=== PATIENT | male | born 1935 | race Caucasian/White ===

== ENCOUNTER 2017-05-15 19:16 | Emergency (ER) | payer MEDICARE, BC ==
[2017-05-15] MEDS ORDERED: hydrALAZINE 10 MG Tab PO ONE (19:17)
[2017-05-15] MEDS ORDERED: Metoprolol Tartrate 50 MG Tab PO ONE ×2 (19:17→21:55)
[2017-05-15] MEDS ORDERED: Labetalol 20 MG/4 ML Syringe ONE (19:41)
--- NOTE | 2017-05-15 19:47 | EDM.PDOC ---
ED HPI GENERAL MEDICAL PROBLEM - General Chief Complaint: Cardiovascular Problem Stated Complaint: HIGH BPOOD PRESSURE Time Seen by Provider: 05/15/17 19:35 Source of Information: Reports: Patient History Limitations: Reports: No Limitations - History of Present Illness INITIAL COMMENTS - FREE TEXT/NARRATIVE: Chito comes to [facility] ED by POV with intermittent precordial chest pressure over the past 20 hrs, associated with elevated BPs present for several weeks. Pain is nonradiating, associated with some malaise but no lopez SOB or palpitations. There is no nausea, headache, dizziness, sweats or known hx of CAD. He has been managing elevated BP for since the first week of April, current BPs 224/82 inspite of meds. He has a PMH of Type II DM and hypothyroidism on meds. Mid-Sternal Chest Pain Score (Numeric/FACES): 4 - Related Data Allergies Allergy/AdvReac Type Severity Reaction Status Date / Time No Known Allergies Allergy Verified 05/15/17 19:54 Home Meds: Home Meds Aspirin [Adult Low Dose Aspirin EC] 81 mg PO DAILY 02/04/13 [History] Omeprazole 20 mg DAILY 08/31/14 [History] Terazosin [Hytrin] 2 mg BEDTIME 08/31/14 [History] metFORMIN [Glucophage] 250 mg PO PCDIN 08/31/14 [History] metFORMIN [Glucophage] 500 mg DAILY 08/31/14 [History] Levothyroxine 75 mcg PO ASDIRECTED 05/15/17 [History] Losartan [Cozaar] 75 mg PO DAILY 05/15/17 [History] Zolpidem Tartrate [Ambien] 5 mg PO BEDTIME 05/15/17 [History] Past Medical History - Past Health History Medical/Surgical History: Denies Medical/Surgical History Other Cardiovascular History: was on BP meds before, but took off because BP became too low. Endocrine/Metabolic History: Reports: Diabetes, Type II, Hypothyroidism Social & Family History - Tobacco Use Smoking Status *Q: Never Smoker - Alcohol Use Days Per Week of Alcohol Use: 1 Number of Drinks Per Day: 1 Total Drinks Per Week: 1 - Recreational Drug Use Recreational Drug Use: No ED ROS GENERAL - Review of Systems Review Of Systems: See Below Constitutional: Reports: Malaise, Decreased Appetite HEENT: Reports: No Symptoms Respiratory: Reports: No Symptoms Cardiovascular: Reports: Chest Pain, Blood Pressure Problem Endocrine: Reports: No Symptoms GI/Abdominal: Reports: No Symptoms : Reports: No Symptoms Musculoskeletal: Reports: No Symptoms Skin: Reports: No Symptoms Neurological: Reports: No Symptoms Psychiatric: Reports: Anxiety Hematologic/Lymphatic: Reports: No Symptoms Immunologic: Reports: No Symptoms ED EXAM, GENERAL - Physical Exam Exam: See Below Exam Limited By: No Limitations General Appearance: Alert, WD/WN, No Apparent Distress, Anxious Eye Exam: Bilateral Eye: EOMI, Normal Inspection, PERRL Ears: Normal External Exam Nose: Normal Inspection Throat/Mouth: Normal Inspection, Normal Oropharynx Head: Normocephalic Neck: Normal Inspection, Supple, Non-Tender, Full Range of Motion Respiratory/Chest: Lungs Clear, Normal Breath Sounds, Chest Non-Tender Cardiovascular: Normal Peripheral Pulses, No Edema, No Gallop, No Murmur, Tachycardia GI/Abdominal: Normal Bowel Sounds, Soft, Non-Tender, No Organomegaly, No Distention, No Mass (Male) Exam: No Hernia Back Exam: Normal Inspection Extremities: Normal Inspection Neurological: Alert, Oriented, CN II-XII Intact, Normal Gait, No Motor/Sensory Deficits Psychiatric: Normal Affect, Anxious Skin Exam: Warm, Dry, Intact Lymphatic: No Adenopathy Course - Vital Signs Text/Narrative:: Following assessment at the [facility] ED, an IV was started in the LUE, and he was administered Labetolol 10 mg x2 doses, followed by Apresoline 10 mg IV, with corresponding reduction of BP 170/75, VR 76. He is currently asx. Screening CBC and CMP labwork was baseline, BNP 479, troponin I <0.017,ekg noted NSR. Last Recorded V/S: Last Vital Signs Temp 36.5 C 05/15/17 19:59 Pulse 72 05/15/17 19:59 Resp 20 05/15/17 19:59 BP 236/84 H 05/15/17 19:59 Pulse Ox 96 05/15/17 19:59 - Orders/Labs/Meds Orders: Active Orders 24 hr Category Date Time Status EKG Documentation Completion [RC] ASDIRECTED Care 05/15/17 19:48 Active Chest 1V Frontal [CR] Stat Exams 05/15/17 19:48 Ordered Metoprolol Tartrate [Lopressor] Med 05/15/17 21:55 Once 50 mg PO ONETIME ONE Sodium Chloride 0.9% [Normal Saline] 1,000 ml Med 05/15/17 20:00 Active IV ASDIRECTED Sodium Chloride 0.9% [Saline Flush] Med 05/15/17 19:48 Active 10 ml FLUSH ASDIRECTED PRN hydrALAZINE [Apresoline] Med 05/16/17 05:00 Ordered 10 mg PO Q6H Peripheral IV Insertion Adult [OM.PC] Routine Oth 05/15/17 19:48 Ordered EKG 12 Lead [EK] Routine Ther 05/15/17 19:48 Ordered Medication Orders Sodium Chloride (Normal Saline) 1,000 mls @ 150 mls/hr IV ASDIRECTED KAYKAY Last Admin: 05/15/17 20:20 Dose: 150 mls/hr Sodium Chloride (Saline Flush) 10 ml FLUSH ASDIRECTED PRN PRN Reason: Keep Vein Open Last Admin: 05/15/17 20:07 Dose: 10 ml Labs: Laboratory Tests 05/15/17 05/15/17 05/15/17 Range/Units 19:55 19:55 19:55 WBC 7.0 (4.5-12.0) X10-3/uL RBC 5.05 (4.30-5.75) x10(6)uL Hgb 15.8 H (11.5-15.5) g/dL Hct 48.2 (30.0-51.3) % MCV 95.6 (80-96) fL MCH 31.2 (27.7-33.6) pg MCHC 32.7 (32.2-35.4) g/dL RDW 12.2 (11.5-15.5) % Plt Count 116 L (125-369) X10(3)uL MPV 9.3 (7.4-10.4) fL Neut % (Auto) 77.2 (46-82) % Lymph % (Auto) 15.2 (13-37) % Hoke % (Auto) 5.7 (4-12) % Eos % (Auto) 1 (1.0-5.0) % Baso % (Auto) 1 (0-2) % Neut # (Auto) 5.3 (1.6-8.3) # Lymph # (Auto) 1.1 (0.6-5.0) # Hoke # (Auto) 0.4 (0.0-1.3) # Eos # (Auto) 0.1 (0.0-0.8) # Baso # (Auto) 0.0 (0.0-0.2) # Sodium 139 (135-145) mmol/L Potassium 4.3 (3.5-5.3) mmol/L Chloride 104 (100-110) mmol/L Carbon Dioxide 28 (21-32) mmol/L BUN 24 H (7-18) mg/dL Creatinine 1.2 (0.70-1.30) mg/dL Est Cr Clr Drug Dosing 48.16 mL/min Estimated GFR (MDRD) 58 L (>60) BUN/Creatinine Ratio 20.0 (9-20) Glucose 131 H (80-116) mg/dL Calcium 8.9 (8.6-10.2) mg/dL Total Bilirubin 0.5 (0.1-1.3) mg/dL AST 18 (5-25) IU/L ALT 23 (12-36) U/L Alkaline Phosphatase 64 (56-112) IU/L Troponin I < 0.017 L (<0.017-0.056) ng/mL NT-Pro-B Natriuret Pep 479 H (<=450) pg/mL Total Protein 7.1 (6.0-8.0) g/dL Albumin 3.4 (3.2-4.6) g/dL Globulin 3.7 g/dL Albumin/Globulin Ratio 0.9 Meds: Medications Generic Name Dose Route Start Last Admin Trade Name Freq PRN Reason Stop Dose Admin Sodium Chloride 1,000 mls @ 150 mls/hr 05/15/17 20:00 05/15/17 20:20 Normal Saline IV 150 mls/hr ASDIRECTED KAYKAY Administration Sodium Chloride 10 ml 05/15/17 19:48 05/15/17 20:07 Saline Flush FLUSH 10 ml ASDIRECTED PRN Administration Keep Vein Open Discontinued Medications Generic Name Dose Route Start Last Admin Trade Name Freq PRN Reason Stop Dose Admin Hydralazine HCl 10 mg 05/15/17 20:56 05/15/17 21:03 Apresoline IVPUSH 05/15/17 20:57 10 mg ONETIME ONE Administration Labetalol HCl Confirm 05/15/17 19:41 05/15/17 19:48 Normodyne Administered 05/15/17 19:42 20 mg Dose Administration 20 mg .ROUTE .STK-MED ONE Labetalol HCl 10 mg 05/15/17 20:21 05/15/17 20:25 Normodyne IVPUSH 05/15/17 20:22 10 mg ONETIME ONE Administration Protocol Departure - Departure Time of Disposition: 21:58 Disposition: Home, Self-Care 01 Condition: Fair Clinical Impression: HTN (hypertension) Qualifiers: Hypertension type: essential hypertension Qualified Code(s): I10 - Essential ( primary) hypertension Referrals: Zee Edwards NP [Primary Care Provider] - Forms: ED Department Discharge - Problem List & Annotations (1) HTN (hypertension) SNOMED Code(s): 79443127 Code(s): I10 - ESSENTIAL (PRIMARY) HYPERTENSION Status: Acute Current Visit: Yes Annotation/Comment:: Chito will take Apresoline 10 mg po and Metoprolol 50 mg po at 5 am tomorrow. He will follow up with PCP tomorrow. Qualifiers: Hypertension type: essential hypertension Qualified Code(s): I10 - Essential (primary) hypertension - Problem List Review Problem List Initiated/Reviewed/Updated: Yes - My Orders Last 24 Hours: My Active Orders 05/15/17 19:48 EKG Documentation Completion [RC] ASDIRECTED Chest 1V Frontal [CR] Stat Sodium Chloride 0.9% [Saline Flush] 10 ml FLUSH ASDIRECTED PRN Peripheral IV Insertion Adult [OM.PC] Routine EKG 12 Lead [EK] Routine 05/15/17 20:00 Sodium Chloride 0.9% [Normal Saline] 1,000 ml IV ASDIRECTED 05/15/17 21:55 Metoprolol Tartrate [Lopressor] 50 mg PO ONETIME ONE 05/16/17 05:00 hydrALAZINE [Apresoline] 10 mg PO Q6H - Assessment/Plan Last 24 Hours: My Active Orders 05/15/17 19:48 EKG Documentation Completion [RC] ASDIRECTED Chest 1V Frontal [CR] Stat Sodium Chloride 0.9% [Saline Flush] 10 ml FLUSH ASDIRECTED PRN Peripheral IV Insertion Adult [OM.PC] Routine EKG 12 Lead [EK] Routine 05/15/17 20:00 Sodium Chloride 0.9% [Normal Saline] 1,000 ml IV ASDIRECTED 05/15/17 21:55 Metoprolol Tartrate [Lopressor] 50 mg PO ONETIME ONE 05/16/17 05:00 hydrALAZINE [Apresoline] 10 mg PO Q6H Plan: Follow up with PCP tomorrow.
[2017-05-15] MEDS ORDERED: Sodium Chloride 0.9% 10 ML Syringe FLUSH PRN (19:48)
[2017-05-15] MEDS ORDERED: Sodium Chloride 0.9% 1,000 ML IV SCH (20:00)
[2017-05-15 20:05] VITALS: BP 236/84
[2017-05-15] MEDS ORDERED: Labetalol 20 MG/4 ML Syringe IVPUSH ONE (20:21)
[2017-05-15] MEDS ORDERED: hydrALAZINE 20 MG/ML SDV IVPUSH ONE (20:56)
[2017-05-15] MEDS ORDERED: hydrALAZINE 10 MG Tab ONE (22:05)
[2017-05-16] MEDS ORDERED: hydrALAZINE 10 MG Tab PO SCH (05:00)
== END 2017-05-15 22:14 | disposition home or self-care (01) ==
LOC: FB.ED 19:16
DX: I10 Essential (primary) hypertension (principal); E11.9 Type 2 diabetes mellitus without complications; E03.9 Hypothyroidism, unspecified; Z79.82 Long term (current) use of aspirin; Z79.899 Other long term (current) drug therapy; Z79.84 Long term (current) use of oral hypoglycemic drugs
CPT/HCPCS: 36415; 80053; 83880; 84484; 85025; 93005; 96361; 96374; 96375; 96376; 99283; A9270; J0360; J7040; J7050

== ENCOUNTER 2019-10-16 22:15 | Emergency (ER) | payer MEDICARE, BC ==
--- NOTE | 2019-10-16 23:06 | EDM.PDOC ---
ED HPI GENERAL MEDICAL PROBLEM - General Chief Complaint: General Stated Complaint: ear Time Seen by Provider: 10/16/19 22:30 Source of Information: Reports: Patient History Limitations: Reports: No Limitations - History of Present Illness INITIAL COMMENTS - FREE TEXT/NARRATIVE: Patient presented to the ED because of bleeding from the right ear. He had a Mohs procedure done at [facility] today. His friend tried to apply pressure but bleeding persisted. - Related Data Allergies Allergy/AdvReac Type Severity Reaction Status Date / Time No Known Allergies Allergy Verified 10/17/19 01:20 Home Meds: Home Meds Aspirin [Adult Low Dose Aspirin EC] 81 mg PO DAILY 02/04/13 [History] Omeprazole 20 mg PO DAILY 08/31/14 [History] Terazosin [Hytrin] 2 mg PO BEDTIME 08/31/14 [History] Levothyroxine 75 mcg PO ASDIRECTED 05/15/17 [History] Carboxymethylcellulose Sodium [Refresh Tears 0.5%] 1 drop EYEBOTH BID 10/17/19 [History] Escitalopram [Lexapro] 10 mg PO DAILY 10/17/19 [History] Gabapentin [Neurontin] 300 mg PO BID 10/17/19 [History] Insulin Detemir [Levemir Flextouch] 16 unit SUBCUT BEDTIME 10/17/19 [History] SitaGLIPtin [Januvia] 100 mg PO DAILY 10/17/19 [History] atorvaSTATin [Lipitor] 20 mg PO BEDTIME 10/17/19 [History] Past Medical History - Past Health History Medical/Surgical History: Denies Medical/Surgical History HEENT History: Reports: Impaired Vision Cardiovascular History: Reports: Hypertension Other Cardiovascular History: was on BP meds before, but took off because BP became too low. Endocrine/Metabolic History: Reports: Diabetes, Type II, Hypothyroidism - Infectious Disease History Infectious Disease History: Reports: Chicken Pox, Measles, Mumps, Shingles Social & Family History - Family History Family Medical History: Noncontributory - Caffeine Use Caffeine Use: Reports: Coffee ED ROS GENERAL - Review of Systems Review Of Systems: See Below Constitutional: Reports: No Symptoms HEENT: Reports: No Symptoms Respiratory: Reports: No Symptoms Cardiovascular: Reports: No Symptoms Endocrine: Reports: No Symptoms GI/Abdominal: Reports: No Symptoms : Reports: No Symptoms Musculoskeletal: Reports: No Symptoms Skin: Reports: Wound Neurological: Reports: No Symptoms Psychiatric: Reports: No Symptoms ED EXAM, GENERAL - Physical Exam Exam: See Below Exam Limited By: No Limitations General Appearance: Alert, No Apparent Distress Ears: Normal External Exam, Normal Canal Nose: Normal Inspection, Normal Mucosa Throat/Mouth: Normal Inspection, Normal Lips, Normal Teeth, Normal Gums Head: Atraumatic, Normocephalic Neck: Normal Inspection, Supple, Non-Tender, Full Range of Motion Respiratory/Chest: No Respiratory Distress, Lungs Clear, Normal Breath Sounds Cardiovascular: Normal Peripheral Pulses, Regular Rate, Rhythm, No Edema, No Gallop GI/Abdominal: Normal Bowel Sounds, Soft, Non-Tender, No Organomegaly Back Exam: Normal Inspection, Full Range of Motion Extremities: Normal Inspection, Normal Range of Motion Neurological: Alert, Oriented, CN II-XII Intact, Normal Cognition, Normal Gait Psychiatric: Normal Affect Skin Exam: Warm (mild bleeding from the wounf -left ear) Course - Vital Signs Text/Narrative:: 1 cc lidocaine with epi was injected to the bleeding site and then cauterized. Last Recorded V/S: Last Vital Signs Temp 36.3 C 10/16/19 22:15 Pulse 62 10/16/19 23:10 Resp 18 10/16/19 23:10 BP 168/64 H 10/16/19 23:10 Pulse Ox 99 10/16/19 23:10 Departure - Departure Time of Disposition: 11:05 Disposition: Home, Self-Care 01 Condition: Good Clinical Impression: Post-op bleeding - Discharge Information Instructions: Mohs Surgery, Care After Referrals: Zee Edwards NP [Primary Care Provider] - Forms: ED Department Discharge Additional Instructions: Please read discharge instructions on post op bleeding Small trickles of blood is ok just apply deep pressure for 15-20 minutes Remove the band aid tomorrow Follow up as needed
[2019-10-17 01:18] VITALS: BP 168/64; PULSE 62
== END 2019-10-16 23:15 | disposition home or self-care (01) ==
LOC: FB.ED 22:15
DX: H95.42 Postprocedural hemorrhage of ear and mastoid process following other procedure (principal); I10 Essential (primary) hypertension; E11.9 Type 2 diabetes mellitus without complications; E03.9 Hypothyroidism, unspecified; Z79.82 Long term (current) use of aspirin; Z79.4 Long term (current) use of insulin; Z79.899 Other long term (current) drug therapy
CPT/HCPCS: 99283

== ENCOUNTER 2021-03-23 19:34 | Emergency (ER) | payer MEDICARE, BC ==
[2021-03-23 22:06] VITALS: BP 152/75; PULSE 66
== END 2021-03-23 21:53 | disposition home or self-care (01) ==
LOC: FB.ED 19:34
DX: S22.32XA Fracture of one rib, left side, initial encounter for closed fracture (principal); S43.402A Unspecified sprain of left shoulder joint, initial encounter; I10 Essential (primary) hypertension; E11.9 Type 2 diabetes mellitus without complications; E03.9 Hypothyroidism, unspecified; K21.9 Gastro-esophageal reflux disease without esophagitis; Z79.899 Other long term (current) drug therapy; Z79.4 Long term (current) use of insulin; W19.XXXA Unspecified fall, initial encounter
CPT/HCPCS: 71045; 99283